=== PATIENT | female | born 1970 | race Two or more races ===

== ENCOUNTER → 2020-02-08 | Outpatient (CLI) | payer OTHER ==
--- NOTE | 2020-02-08 08:29 | RAD ---
ABDOMEN COMPLETE History: Reason: Generalized ABD pain / Spl. Instructions: / History: Comparison: None. Technique: Sonographic examination of the abdomen was performed and multiple grayscale and color Doppler static images were obtained. Findings: Liver demonstrates normal echogenicity. The liver measures 15.6 cm. Portal flow is patent. Degraded evaluation due to overlying structures. Common bile duct measures 4.4 mm in diameter. Prior cholecystectomy. Visualized pancreas is not well seen due to overlying bowel gas. The right kidney measures 10.8 x 4.2 x 4.6 cm. No hydronephrosis. The left kidney measures 12.6 x 4.2 x 6.2 cm. No hydronephrosis. The spleen measures 9 cm. Aorta and IVC not well seen due to overlying bowel gas. IMPRESSION: 1. Unremarkable abdominal ultrasound allowing for image degradation, as described. 2. Prior cholecystectomy. Electronically signed by: Vitor Green DO (02/08/2020 8:26 AM) [id number]
--- NOTE | 2020-02-08 08:31 | RAD ---
PELVIS W/TV History: Reason: Right Pelvic pain / Spl. Instructions: / History: Comparison: None. Technique: Grayscale and color Doppler imaging of the pelvis was performed using transabdominal and transvaginal technique. Findings: The uterus measures 8.9 x 6.3 x 5.0 cm. 3 heterogeneous solid masses within the myometrium measuring 2.5 cm, 1.6 cm and 1.2 cm. The endometrial stripe measures 2.8 mm. Bilateral ovaries not identified due to overlying bowel gas and positioning. No adnexal masses are seen. No free fluid. IMPRESSION: 1. Several uterine masses, likely fibroids. 2. Bilateral ovaries not identified Electronically signed by: Vitor Green DO (02/08/2020 8:28 AM) [id number]
== END | disposition home or self-care (01) ==
LOC: US 07:05
PROVIDERS: ATTEND Family Medicine
DX: N85.8 Other specified noninflammatory disorders of uterus (principal); R10.2 Pelvic and perineal pain
CPT/HCPCS: 76700; 76830; 76856

== ENCOUNTER → 2020-06-23 | Outpatient (CLI) | payer OTHER ==
--- NOTE | 2020-06-23 13:18 | KCIC ---
EXAM: DUAL ENERGY X-RAY ABSORPTIOMETRY (DEXA). HISTORY: Postmenopausal screening. FINDINGS: The lowest measured T-score is -0.6 in the lumbar spine and left total femur, based on a gisela ne mineral density of 0.983/0.864 g/cm^2, respectively. Refer to the worksheets for full detail. No comparison examinations are available. IMPRESSION: Normal. Bone mineral density yields a T-score of -1.0 or greater. Fracture risk is low. FRAX was not calculated. METHODOLOGY: Dual energy x-ray absorptiometry was performed to measure bone mineral density. The foll owing analysis is based on the 2019 Official Positions of the International Society for Clinical Dens itometry: Measurements of the hips and the average of L1-L4 are preferred. When the spine and/or hip cannot be feasibly measured or interpreted, or in the setting of hyperparathyroidism, distal radial bone minera l density may be measured. The lumbar spine T-score is based on the average bone mineral density of L1-L4. In the setting of art ifact or anatomic abnormality, some lumbar levels may be excluded, and the remaining levels used for calculation. A single lumbar level is not used for diagnosis, and if only a single level is available for assessment, another anatomic site will be used to assign a diagnosis. The hip T-score is based on the bone mineral density measurement of the femoral neck or total proxima l femur of either side, whichever is lowest. Bilateral mean values are not used for diagnosis. The forearm T-score is derived from 33% of the distal radius of the nondominant forearm. For postmenopausal and perimenopausal women, and men age 50 or older, of all ethnic groups, T-scores are calculated through comparison of the current measurement with the NHANES III database standard fo r females aged 20-29 years. The lowest T-score of the evaluated anatomic sites is used to a ssign a diagnosis based on the World Health Organization densitometric classification. In premenopausal females and males younger than age 50, a Z-score is calculated based on population s pecific reference data for patient sex and self-reported ethnicity. Electronically signed by: Melani Redding MD (06/23/2020 1:16 PM) [id number]
== END ==
LOC: KCIC DEXA 11:22
PROVIDERS: ATTEND Nurse Practitioner Gerontology
DX: N95.9 Unspecified menopausal and perimenopausal disorder (principal)
CPT/HCPCS: 77080